=== PATIENT | male | born 1955 | race Caucasian/White ===

== ENCOUNTER 2019-11-16 10:54 | Outpatient (NON) | payer MEDICARE, SELFPAY ==
[2019-11-16 21:25] LABS: SARS-CoV-2 RNA PCR Negative
== END 2019-11-16 10:55 ==
PROVIDERS: Visit Provider Nurse Practitioner Adult Health
DX: R05 Cough (principal); Z20.828 Contact with and (suspected) exposure to other viral communicable diseases
CPT/HCPCS: 87635; C9803; U0003

== ENCOUNTER 2022-12-15 22:52 | Emergency (ER) | payer MEDICARE, SELFPAY ==
--- NOTE | ~2022-12-15 | CT_ITS ---
CT of the Abdomen and Pelvis: Indication: GI bleed Technique: 2.5 mm axial scans were obtained through the abdomen and pelvis following intravenous adm inistration of 100 cc of Omnipaque 350. Dose reduction technique was used on this scan by utilizing a utomated exposure control and iterative reconstruction technique. The dose-length product (DLP) was 7 20.68 mGy-cm. Findings: Scans through the lung bases are unremarkable. The liver, spleen, pancreas, adrenals and kidneys are within normal limits. Small gallstone present. There are atherosclerotic calcifications of the aorta. No lymphadenopathy. No bowel obstruction or bowel wall thickening. There is hyperdense material pooling within the lumen of the ascending colon, suspicious for active GI bleeding.. Images through the pelvis were performed. Urinary bladder unremarkable. No pelvic mass evident. No as cites. Impression: Findings consistent with active GI bleed at the ascending colon/hepatic flexure. Reviewed, dictated and finalized at [facility]. Impression: Findings consistent with active GI bleed at the ascending colon/hepatic flexure .
[2022-12-15 22:50] VITALS: BP 159/80; PULSE 75; RESP 18; O2SAT 100
[2022-12-15 23:01] VITALS: BP 159/80; PULSE 77; RESP 12; O2SAT 99
--- NOTE | 2022-12-15 23:57 | PC.NURSE ---
EDP DR. RODRIGUEZ VORTyrese CT W CON OF ABD PELVIS FOR PT. THIS RN USED CLOSED LOOP COMMUNICATION, CLARIFYING ORDER AND PT BEFORE HAVING FILM INSPECTORKARI ORDER.
[2022-12-16] VITALS (25 sets, daily range): BP systolic 105–174; BP diastolic 57–99; PULSE 61–98; RESP 14–21; O2SAT 94–99
[2022-12-16 00:02] LABS: Basophils Percent Auto 0.5 % (0.2-1.2); Eosinophils Percent Auto 0.5 % (0-4.4); Hematocrit 42.3 % (42.0-52.0); Hemoglobin 13.8 g/dL (14.0-18.0); Immature Granulocyte Absolute 0.01 K/mm3 (0.00-0.031); Immature Granulocyte Percent A 0.2 % (0-0.5); Lymphocytes Absolute Auto 2.15 K/mm3 (0.9-3.2); Lymphocytes Percent Auto 35.5 % (18.3-44.2); Mean Corpuscular HGB Conc 32.6 g/dl (32-36); Mean Corpuscular Hemoglobin 31.2 pg (26-34); Mean Corpuscular Volume 95.7 fl (80-100); Mean Platelet Volume 9.6 fl (7.4-10.4); Monocytes Absolute Auto 0.6 K/mm3 (0.1-0.6); Monocytes Percent Auto 9.4 % (2.6-8.5); Neutrophils Absolute Auto 3.3 K/mm3 (1.3-6.7); Neutrophils Percent Auto 53.9 % (45.5-73.1); Platelet Count Result 244 k/mm3 (150-375); Red Blood Count 4.42 M/mm3 (4.6-6.20); Red Cell Distribution Width 12.1 % (11.5-14.5); White Blood Count 6.1 K/mm3 (4.5-10.0)
[2022-12-16 00:12] LABS: Partial Thromboplastin Time 29.4 SECONDS (22.3-36.8)
[2022-12-16 00:14] LABS: Alanine Aminotransferase 27 U/L (6-50); Albumin Level 4.2 g/dL (3.5-5.1); Alkaline Phosphatase 64 U/L (38-126); Anion Gap 6 mmol/L (8-16); Aspartate Amino Transferase 29 U/L (17-59); Bilirubin,Total 0.8 mg/dL (0.2-1.3); Blood Urea Nitrogen 28 mg/dL (9-20); Calcium 8.8 mg/dL (8.4-10.2); Carbon Dioxide 27 mmol/L (22-30); Chloride 103 mmol/L (98-107); Estimated CRCL calculation 44 ml/min; Estimated Glomerular Filt Rate 47; Glucose 124 mg/dL (65-110); Potassium 3.5 mmol/L (3.4-5.0); Sodium 136 mmol/L (137-145)
--- NOTE | 2022-12-16 00:36 | PC.NURSE ---
PT TO CT AT THIS TIME.
--- NOTE | 2022-12-16 01:13 | ED.GIBLEED ---
HPI - GI Bleed General Chief complaint: GI Bleed Stated complaint: BLOODY STOOLS X 2 Time Seen by Provider: 12/15/22 23:49 History of Present Illness HPI Narrative: Patient presents to the emergency department with bright red blood per rectum x2 prior to arrival. He denies abdominal pain. Denies having had symptoms like this in the past. Patient is in no distress upon my initial evaluation of him Related Data Allergies Allergy/AdvReac Type Severity Reaction Status Date / Time codeine AdvReac Unknown NAUSEA Verified 12/15/22 23:07 oxycodone AdvReac Unknown CONFUSION Verified 12/15/22 23:07 NKDA Allergy Unknown Unknown Uncoded 12/15/22 23:07 Review of Systems Review of Systems: Review of systems negative except what is documented in the HPI Exam Narrative: GENERAL: Well-appearing, well-nourished, and in no acute distress. HEAD: Normocephalic, atraumatic. EYES: PERRLA and EOMI. ENT: Nares clear, no rhinorrhea or epistaxis. Mucous membranes moist. NECK: Supple. CHEST: Clear to auscultation. No respiratory distress. HEART: Regular rate and rhythm. ABDOMEN: Soft, nontender, nondistended. EXTREMITIES: Normal range of motion. No edema. SKIN: Warm, dry, no rash. NEURO: No focal deficits. Alert and oriented x3. PSYCH: Normal mood and affect. Course Course Emergency Course: Differential diagnosis includes but not limited to colitis, diverticulitis, hemorrhoids, active hemorrhage Telemetry ordered due to GI bleed and syncope to evaluate for dysrhythmias. Evaluated by myself. Rhythm ns Rate 69 Patient had 4 episodes of bright red blood while sitting on the toilet for the fourth time in the emergency department. After the fourth loss of blood he became very lightheaded and diaphoretic. Had a syncopal episode. He has been pale and slightly diaphoretic since. Vital signs are stable. Repeat CBC at that time was normal. However likely delayed response so we will repeat another hemoglobin. CT scan shows extensive intramural hemorrhage within the ascending colon extending to the hepatic flexure concerning for active GI bleed. Patient will need to be transferred somewhere with an interventional radiologist Due to high probability of clinically significant lift threatening deterioration, the patient required my highest level of preparedness to intervene emergently. Critical care time documented not including procedures needed Vital Signs Vital signs: Vital Signs Pulse Rate 75 12/15/22 22:50 Respiratory Rate 18 12/15/22 22:50 Blood Pressure 159/80 H 12/15/22 22:50 Pulse Oximetry 100 12/15/22 22:50 Pulse Rate 80 12/16/22 06:21 Respiratory Rate 19 12/16/22 06:21 Blood Pressure 134/63 12/16/22 06:21 Pulse Oximetry 96 12/16/22 06:21 MDM - GI Bleed MDM Narrative Medical decision making narrative: Pt accepted as transfer to [facility] for GI and interventional radiology. VSS, no further bleeding. Hgb trending down. Dr Montoya accepted transfer Lab Data 12/16/22 06:01 12/15/22 23:53 Labs: Lab Results 12/15/22 12/16/22 12/16/22 Range/Units 23:53 01:19 06:01 WBC 6.1 8.1 9.6 (4.5-10.0) K/mm3 RBC 4.42 L 4.15 L 3.67 L (4.6-6.20) M/mm3 Hgb 13.8 L 13.0 L 11.6 L (14.0-18.0) g/dL Hct 42.3 39.6 L 34.9 L (42.0-52.0) % MCV 95.7 95.4 95.1 (80-100) fl MCH 31.2 31.3 31.6 (26-34) pg MCHC 32.6 32.8 33.2 (32-36) g/dl RDW 12.1 12.1 12.0 (11.5-14.5) % Plt Count 244 270 218 (150-375) k/mm3 MPV 9.6 9.5 9.5 (7.4-10.4) fl Immature Gran % (Auto) 0.2 0.7 H 0.5 (0-0.5) % Neut % (Auto) 53.9 59.0 79.7 H (45.5-73.1) % Lymph % (Auto) 35.5 29.7 14.3 L (18.3-44.2) % Porter % (Auto) 9.4 H 9.7 H 5.2 (2.6-8.5) % Eos % (Auto) 0.5 0.2 0.0 (0-4.4) % Baso % (Auto) 0.5 0.7 0.3 (0.2-1.2) % Lymph # (Auto) 2.15 2.41 1.37 (0.9-3.2) K/mm3 Porter # (Auto) 0.6 0.8 H 0.5 (0.1-0.6) K/mm3 Eos # (Auto) 0.0 0.0 0
--- NOTE | 2022-12-16 01:17 | PC.NURSE ---
Pt ambulated to restroom. After passing bloody stool pt tried walking back to room and became diaphoretic, pale, and passed out. This RN was present. MICHELE Ruby tech grabbed wheelchair. MYRNA Del Castillo, carline RN and MYRNA Lakhani assisted pt into room closest to restroom. Pt regained consciousness as moving onto stretcher. EDP, Dr. Flores was at bedside and placed more lab and medication orders. Pt placed on monitor and has stable VS.
[2022-12-16 01:27] LABS: Basophils Absolute Auto 0.1 K/mm3 (0.0-0.1); Basophils Percent Auto 0.7 % (0.2-1.2); Eosinophils Percent Auto 0.2 % (0-4.4); Hematocrit 39.6 % (42.0-52.0); Immature Granulocyte Absolute 0.06 K/mm3 (0.00-0.031); Immature Granulocyte Percent A 0.7 % (0-0.5); Lymphocytes Absolute Auto 2.41 K/mm3 (0.9-3.2); Lymphocytes Percent Auto 29.7 % (18.3-44.2); Mean Corpuscular HGB Conc 32.8 g/dl (32-36); Mean Corpuscular Hemoglobin 31.3 pg (26-34); Mean Corpuscular Volume 95.4 fl (80-100); Mean Platelet Volume 9.5 fl (7.4-10.4); Monocytes Absolute Auto 0.8 K/mm3 (0.1-0.6); Monocytes Percent Auto 9.7 % (2.6-8.5); Neutrophils Absolute Auto 4.8 K/mm3 (1.3-6.7); Platelet Count Result 270 k/mm3 (150-375); Red Blood Count 4.15 M/mm3 (4.6-6.20); Red Cell Distribution Width 12.1 % (11.5-14.5); White Blood Count 8.1 K/mm3 (4.5-10.0)
[2022-12-16] MEDS: SODIUM CHLORIDE 0.9% IV 1,000 ML 999 ML IV CONT (01:28)
[2022-12-16] MEDS: PANTOPRAZOLE SODIUM IV 40 MG VIAL IV PUSH (01:29)
[2022-12-16] MEDS: PANTOPRAZOLE SODIUM IV 80 MG in SODIUM CHLORIDE 0.9% IV 500 ML 50 MG IV CONT (01:57)
[2022-12-16 06:06] LABS: Basophils Percent Auto 0.3 % (0.2-1.2); Hematocrit 34.9 % (42.0-52.0); Hemoglobin 11.6 g/dL (14.0-18.0); Immature Granulocyte Absolute 0.05 K/mm3 (0.00-0.031); Immature Granulocyte Percent A 0.5 % (0-0.5); Lymphocytes Absolute Auto 1.37 K/mm3 (0.9-3.2); Lymphocytes Percent Auto 14.3 % (18.3-44.2); Mean Corpuscular HGB Conc 33.2 g/dl (32-36); Mean Corpuscular Hemoglobin 31.6 pg (26-34); Mean Corpuscular Volume 95.1 fl (80-100); Mean Platelet Volume 9.5 fl (7.4-10.4); Monocytes Absolute Auto 0.5 K/mm3 (0.1-0.6); Monocytes Percent Auto 5.2 % (2.6-8.5); Neutrophils Absolute Auto 7.6 K/mm3 (1.3-6.7); Neutrophils Percent Auto 79.7 % (45.5-73.1); Platelet Count Result 218 k/mm3 (150-375); Red Blood Count 3.67 M/mm3 (4.6-6.20); White Blood Count 9.6 K/mm3 (4.5-10.0)
--- NOTE | 2022-12-16 06:10 | PC.NURSE ---
This RN spoke with Taylor at [facility]. Pt has been accepted to [facility]. Taylor will call back w updates.
[2022-12-16] MEDS: PIPERACILLIN/TAZ 4.5G/NS 100ML 4.5 GM/100 ML BAG IVPB (06:21)
== END 2022-12-16 08:50 | disposition short-term general hospital (02) ==
PROVIDERS: Emergency Provider Emergency Medicine; PCP Nurse Practitioner Family
DX: K92.2 Gastrointestinal hemorrhage, unspecified (principal); K52.9 Noninfective gastroenteritis and colitis, unspecified
CPT/HCPCS: 36415; 74177; 80053; 85025; 85610; 85730; 86850; 86900; 86901; 96365; 96366; 96368; 99285; C9113; J2543; J7030; J7040; Q9967

== ENCOUNTER 2024-11-04 18:34 | Emergency (ER) | payer MEDICARE, SELFPAY ==
--- OUTSIDE RECORDS SUMMARY | 2003-07-25 09:15 | XMS_ITS | Continuity of Care Document ---
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 [address] , [address], [place], [address], [place]. tel:[phone] Family History Family Member Type Diagnosis Age At Onset No Information Payers Payer name Insurance type Covered alliance party ID Authoriza tion(s) No Information Social History Type Description Quantity Date Captured Comments Sex Male Smoking Status No Information Chief Complaint And Reason For Visit No Information Reason For Referral Reason For Referral No Information History Of Present Illness Encounter Date Complaint History Of Prese nt Illness No Information Functional Status Date Functional Assessmen t No Information Instructions Date Instruction Additional Infor mation No Information Assessments Type Assessment Date No Information Patient Care Teams Name Effective Dates (start - stop) Status Members No Information
[2024-11-04] VITALS (7 sets, daily range): BP systolic 138–163; BP diastolic 65–119; PULSE 66–92; RESP 14–26; TEMP 36.6; O2SAT 96–99
--- NOTE | ~2024-11-04 | CT_ITS ---
EXAMINATION: CTA abdomen pelvis DATE: 11/04/2024 20:03 INDICATION: Gastrointestinal bleed TECHNIQUE: Computed tomographic angiography (CTA) of the abdomen and pelvis was performed with 100 mL Omnipaque-350 intravenous contrast. Additional 3D reconstructions utilizing rotating maximum intensity projection (MIP) were performed. Automated exposure control and iterative reconstruction technique were employed. The dose-length product was 560.93 mGy-cm. COMPARISON: 12/16/22 FINDINGS: Lung bases are clear. Mild cardiomegaly. No pericardial or pleural effusion. Tiny calcite gallstones the dependent aspect of the decompressed gallbladder. Liver, spleen, pancreas, bilateral adrenal glands and left kidney are normal. Decreased size and increased density of a previously 2.7 cm simple fluid attenuation, currently 1.7 cm higher attenuation likely complex proteinaceous hemorrhagic cyst at the right kidney. Bladder is normal. There is moderate colonic diverticulosis with a sigmoid predominance. There is no adjacent inflammatory change to suggest diverticulitis. Small bowel and appendix are normal. Fluid throughout the colon consistent with diarrhea. This demonstrates increased density diffusely which could be related to reported gastrointestinal bleed. There is a focus of active contrast extravasation in the ascending colon short distance proximal to the hepatic flexure. No free intraperitoneal gas or fluid. No pathologically enlarged abdominal or pelvic lymphadenopathy. There is mild scattered calcified atherosclerosis of the normal caliber abdominal aorta and many of the other arteries. Mild lumbar and moderate lower thoracic spondylosis. Right total hip arthroplasty. IMPRESSION: 1. Gastrointestinal bleed with active contrast extravasation along the ascending colon. 2. Cholelithiasis. 3. Diverticulosis. 4. 1.7 cm soft tissue density lesion in the right kidney at the site of a prior 2.7 cm low-attenuation cyst which suggests transition to a now hemorrhagic/proteinaceous cyst. Could consider correlation with ultrasound or noncontrast CT for confirmation as clinically indicated. Reviewed, dictated and finalized at location A. IMPRESSION: 1. Gastrointestinal bleed with active contrast extravasation along the ascendin g colon. 2. Cholelithiasis. 3. Diverticulosis. 4. 1.7 cm soft tissue density lesion in the right kidney at the site of a prior 2.7 cm low-attenuation cyst which suggests transition to a now hemorrhagic/pro teinaceous cyst. Could consider correlation with ultrasound or noncontrast CT f or confirmation as clinically indicated.
--- OUTSIDE RECORDS SUMMARY | 2024-11-04 18:36 | XMS_ITS | Clinical Summary ---
Author Organization [facility] Address [address] [facility] [place] [address] Care Team Providers Care Block Trimmer Name Role Phone Unavailable Primary Care Provider Unavailabl e Source Comments [facility],non-owned Affiliates and Associated Physician Practices is amultiple site organization consisting of ambulatory clinics and hospital sitesin [place], [place], [place] and [place]. This disclosure is being madepursuant to the Care Everywhere program and may not contain all information available regarding this patient. Last updated 17.[facility] Allergies Active Allergy Reactions Criticality Noted Date Comments Barbiturates Other 10/13/2018 hallucinations Codeine Rash Medium 09/27/2018 Medications * Be aware that medications may not be up to date on this document. Alwaysverify current medications with the patient. aspirin (ASPIRIN) 81 MG chew tablet Take 1 tablet by mouth once daily 09/29/2018 Active lisinopril (PRINIVIL; ZESTRIL) 10 MG tablet Take 1 tablet by mouth once daily 90 tablet 3 10/27/2018 Active carvedilol (COREG) 12.5 MG tablet Take 0.5 (one-half) tablet by mouth 2 times daily 180 tablet 3 06/14/2019 Active spironolactone (ALDACTONE) 25 MG tabletIndication s:Essential hypertension,RAH M (nonischemic cardiomyopathy) (HCC) Take 1 tablet by mouth once daily 90 tablet 3 01/25/2020 Active Active Problems Problem Noted Date Diagnosed Date Seasonal allergies 06/14/2019 Chronic systolic heart failure 10/05/2018 Overview (10/05/2018): TTE showed 30% EF Assessment & Plan (06/15/2019 2:36 PM CDT): EF increased from 30% to 45% on most recent echo. Continue lisinopril 10 mg and spironolactone 25 mg. Decrease Coreg to 6.25 mg BID due to fatigue. No indication for primary prevention ICD at this time due to improved EF. Patient instructed to continue to abstain from alcohol. Low-sodium, low-fat diet recommended. Continue exercise activity as tolerated. Call with an update in 1-2 weeks regarding energy level. Would consider increasing lisinopril if blood pressure permits. Follow-up with cardiology in 4 months. Assessment & Plan (10/05/2018 11:44 AM CDT): EF 30%, euvolemic. Start Coreg 3.125 mg BID and continue lisinopril 10 mg, ASA 81 mg, and Plavix 75 mg. Schedule nuclear stress test for ischemic work-up and recheck BMP. Low-salt, low-fat diet. Continue exercise activity. Continue abstaining from alcohol. Follow-up with cardiology in 3 weeks. Plan for ICD if EF does not improve with medical management. NICM (nonischemic cardiomyopathy) 10/05/2018 Assessment & Plan (06/15/2019 2:36 PM CDT): Stress test negative for ischemia. Cardiomyopathy likely 2/2 alcohol use. Continue to abstain from alcohol. Essential hypertension 10/05/2018 Assessment & Plan (06/15/2019 2:28 PM CDT): Good control with home BP 127/69. Assessment & Plan (10/05/2018 11:49 AM CDT): Start Coreg 3.125 mg BID. Continue lisinopril 10 mg daily. Follow-up in 3 weeks. Aphasia 09/27/2018 Neurological abnormality 09/27/2018 Cerebrovascular accident (CVA) 09/27/2018 Assessment & Plan (06/15/2019 2:29 PM CDT): Patient denies recurrence of stroke symptoms. He is able to perform ADLs and exercise activity without limitations. Resolved Problems Problem Noted Date Diagnosed Date Resolved Date Gastrointestinal hemorrhage, unspecified gastrointestinal hemorrhage type 12/16/2022 023 Immunizations Immunization Administration Dates Next Due INFLUENZA VACCINE 03/11/2019 Family History Medical History Relation Name Comments Cancer - Lung Mother Relation Name Status Comments Mother Social History Tobacco Use Types Packs/Day Years Used Date Smoking Tobacco: Former Cigarettes 1 50 Smokeless Tobacco: Never Tobacco Cessation:Counseling Given: Not Answered Alcohol Use Standard Drinks/Week Comments Yes 20 (1 standard drink = 0.6 oz pu re alcohol) Overall Financial Resource Strain (CARDIA) Answe r Date Recorded How hard is it for you to pa y for the very basics like food, housing, medical care, and heating? Not hard at all 12/16/2022 [facility] [place] - Occupational Stress Questionnaire Answer Date Recorded Do you feel stress - tense, restless, nervous, or anxious, or unable to sleep at night because your mind is troubled all the time - these days? Not at all 12/16/2022 Hunger Vital Sign Answer Date Recorded Within the past 12 months, y ou worried that your food would run out before you got the money to buy more. Never true 12/17/19 23 Within the past 12 months, t he food you bought just didn't last and you didn't have money to get more. Never true 12/16/2022 PRAPARE - Transportation Answer Date Re corded In the past 12 months, has l ack of transportation kept you from medical appointments or from getting medications? No 12/06 In the past 12 months, has l ack of transportation kept you from meetings, work, or from getting things needed for daily living? No 12/16/2022 Housing Stability Vital Sign Answer Fransisco e Recorded In the last 12 months, was t here a time when you were not able to pay the mortgage or rent on time? No 12/16/2022 In the last 12 months, how many places have you lived? 1 12/16/2022 In the last 12 months, was t here a time when you did not have a steady place to sleep or slept in a intermediate (including now)? No 12/16/2022 Sex and Gender Information Value Date Recorded Sex Assigned at Not on file Legal Sex Male 1:42 PM CDT Gender Identity Not on file Sexual Orientation Not on file Last Filed Vital Signs Vital Sign Reading Time Taken Comments Blood Pressure 143/72 12/17/2022 8:40 AM CDT Pulse 76 12/17/2022 8:40 AM CDT Temperature 36.4 C (97.5 F) 12/17/2022 8:40 AM CDT Respiratory Rate 11 12/17/2022 8:40 AM CDT Oxygen Saturation 98% 12/17/2022 8:40 AM CDT Inhaled Oxygen Concentration - - Weight 88.5 kg (195 lb 1.6 oz) 12/17/2022 5:30 A M CDT Height 167.6 cm (5' 6) 12/16/2022 10:09 AM CDT Body Mass Index 31.49 12/16/2022 10:09 AM CDT Plan of Treatment Health Maintenance Due Date Last Done Comments COLOGUARD (AGES 45-75) - COLON CA SCREENING 1955 CT COLONOGRAPHY - COLON CA SCREENING 1955 FIT - COLON CA SCREENING 1955 FLEX SIG - COLON CA SCREENING 1955 HEPATITIS C SCREENING 03/27/1972 DTAP/TDAP/TD VACCINES (1 - Tdap) 1973 PNEUMOCOCCAL VACCINE 50+ (1 of 2 - PCV) 1973 ZOSTER VACCINE (1 of 2) 2004 Respiratory Syncytial Virus (RSV) Vaccine Pt: or over 60 yrs (1 - Risk 60-74 years 1-dose series) 2014 AAA SCREENING 2019 LIPID TESTING 09/29/2023 09/28/2018 COVID-19 VACCINE (1 - 2023- season) 2023 DEPRESSION SCREENING 03/08/2024 MEDICARE AWV CALENDAR YEAR 2024 INFLUENZA VACCINE (#1) 2024 0, 03/09/2019, 01/02/2016, Additional history exists SCREENING FOR DIABETES 12/16/2025 3, 09/28/2018, 09/28/2018, Additional history exists COLON MONITORING 12/17/2032 12/17/2022, 12/17/2022 COLONOSCOPY - COLON CA SCREENING 12/17/2032 12/17/2022, 12/17/2022 Colorectal Cancer Screening 12/17/2032 HEPATITIS B VACCINE Aged Out No longe r eligible based on patient's age to complete this topic HIB VACCINE Aged Out No longer eligi ble based on patient's age to complete this topic HPV VACCINE Aged Out No longer eligi ble based on patient's age to complete this topic MENINGOCOCCAL (Group B) VACCINE SHARED DECISION-MAKING Aged Out No longer eligible based on patient's age to complete this topic MENINGOCOCCAL GROUPS A/C/Y/W VACCINE Aged Out No longer eligible based on patient's age to complete this topic Procedures Procedure Name Priority Date/Time Associated Diagnosis Comments ENDOSCOPY, COLON, DIAGNOSTIC Routine 12/17/2022 7:49 AM CDT COMPREHENSIVE METABOLIC PANEL STAT 12/16/2022 10:29 AM CDT LIPID PROFILE Routine 09/28/2018 3:36 AM CDT from Last 3 Months or Most Recently Relevant to Health Maintenance Results * ENDOSCOPY, COLON, DIAGNOSTIC (12/17/2022 7:49 AM CDT) Report Endoscopy POC _ Patient Name: Torsten Freire Procedure Date: 12/17/2022 7:49 AM Date of : 1955 Admit Type: Inpatient Age: 67 Gender: Male Ethnicity: Not or Race: White Attending MD: Kit Bains MD, [id number] _ Procedure: Colonoscopy Indications: Hematochezia Providers: Kit Bains MD (Doctor), Jovita Ojeda, RN, Ale Coronel RN Patient Profile: 67M presents for eval of rectal bleeding. last exam > 3 yrs Referring MD: Carol Flores MD (Referring MD) Medicines: Monitored Anesthesia Care Complications: No immediate complications. _ Estimated Blood Loss: Estimated blood loss: none. Procedure: Pre-Anesthesia Assessment: - Prior to the procedure, a History and Physical was performed, and patient medications and allergies were reviewed. The patient's tolerance of previous anesthesia was also reviewed. The risks and benefits of the procedure and the sedation options and risks were discussed with the patient. All questions were answered, and informed consent was obtained. Prior Anticoagulants: The patient has taken no anticoagulant or antiplatelet agents. ASA Grade Assessment: II - A patient with mild systemic disease. After reviewing the risks and benefits, the patient was deemed in satisfactory condition to undergo the procedure. After I obtained informed consent, the scope was passed under direct vision. Throughout the procedure, the patient's blood pressure, pulse, and oxygen saturations were monitored continuously. The Colonoscope was introduced through the anus and advanced to the cecum, identified by appendiceal orifice and ileocecal valve. The colonoscopy was performed without difficulty. The patient tolerated the procedure well. The quality of the bowel preparation was fair. The terminal ileum, ileocecal valve, appendiceal orifice, and rectum were photographed. Impression: - Preparation of the colon was fair. - The examined portion of the ileum was normal. - Diverticulosis in the sigmoid colon, in the descending colon, in the transverse colon and in the ascending colon. - The examination was otherwise normal. - No specimens collected. Findings: The perianal and digital rectal examinations were normal. The terminal ileum appeared normal. Scattered small and large-mouthed diverticula were found in the sigmoid colon, descending colon, transverse colon and ascending colon. The exam was otherwise without abnormality. _ Recommendation: - Patient has a contact number available for emergencies. The signs and symptoms of potential delayed complications were discussed with the patient. Return to normal activities tomorrow. Written discharge instructions were provided to the patient. - High fiber diet. - Repeat colonoscopy in 3 - 5 years for surveillance. - Return patient to [facility] for ongoing care. Procedure Code(s): --- Professional --- 07197, Colonoscopy, flexible; diagnostic, including collection of specimen(s) by brushing or washing, when performed (separate procedure) --- Technical --- 35135, Colonoscopy, flexible; diagnostic, including collection of specimen(s) by brushing or washing, when performed (separate procedure) Diagnosis Code(s): --- Professional --- K92.1, Melena (includes Hematochezia) K57.30, Diverticulosis of large intestine without perforation or abscess without bleeding --- Technical --- K92.1, Melena (includes Hematochezia) K57.30, Diverticulosis of large intestine without perforation or abscess without bleeding CPT copyright 2020 [employer]. All rights reserved. The codes documented in this report are preliminary and upon senior mortgage underwriter review may be revised to meet current compliance requirements. Kit Bains MD 12/17/2022 8:28:36 AM This report has been signed electronically. Number of Addenda: 0 Note Initiated On: 12/17/2022 7:49 AM [facility] 12/17/2022 7:49 AM CDT Narrative Procedure Note Kit Bains MD - 12/17/2022 8:29 AM CDT Colonoscopy Scattered pandiverticulosis Normal T.I. Diverticular bleed stopped Resume diet DC us Kit Bains MD GI PROCEDURE ORDERABLES Edited R esult - Final [facility] * (ABNORMAL) COMPREHENSIVE METABOLIC PANEL (12/16/2022 10:29 AM CDT) Glucose 124(H) 70 - 105 mg/dL 12/16/2022 10:54 AM CDT [facility] Sodium 139 136 - 145 mmol/L 12/16/2022 10:54 AM CDT [facility] Potassium 4.3 3.5 - 5.1 mmol/L 12/16/2022 10:54 AM CDT [facility] Chloride 112(H) 98 - 107 mmol/L 12/16/2022 10:54 AM CDT [facility] CO2 22 22 - 29 mmol/L 12/16/2022 10:54 AM CDT [facility] Calcium 8.4 8.4 - 10.4 mg/dL 12/16/2022 10:54 AM CDT [facility] Anion Gap 5(L) 6 - 16 mmol/L 12/16/2022 10:54 AM CDT [facility] BUN 19 7 - 26 mg/dL 12/16/2022 10:54 AM CDT [facility] Creatinine 1.14 0.72 - 1.25 mg/dL 12/16/2022 10:54 AM CDT [facility] Alkaline Phosphatase 48 40 - 150 U/L 12/16/2022 10:54 AM CDT [facility] ALT 16 0 - 55 U/L 12/16/2022 10:54 AM CDT [facility] AST 15 5 - 34 U/L 12/16/2022 10:54 AM CDT [facility] Protein Total 5.8(L) 6.4 - 8.3 gm/dL 12/16/2022 10:54 AM CDT [facility] Albumin 3.3(L) 3.4 - 5.0 gm/dL 12/16/2022 10:54 AM CDT [facility] Bilirubin Total 0.6 0.2 - 1.2 mg/dL 12/16/2022 10:54 AM CDT [facility] eGFR by CKD-EPI 70(L) >=90 mL/min/1.7 3 m2 12/16/2022 10:54 AM CDT [facility] Blood BLOOD SPECIMEN / Unknown Lab Venipuncture / Unknown 12/16/2022 10:29 AM CDT 12/16/2022 10:34 AM CDT Chucky Russo MD LAB - CHEMISTRY ORDERABLES Fin al Result Performing Organization Address City/[facility]/ZIP Co de Phone Number [facility] [address] [place] [address] * (ABNORMAL) LIPID PROFILE (09/28/2018 3:36 AM CDT) [facility] Cholesterol Total 211(H) <200 mg/dL 09/28/2018 4:19 AM [facility] HDL 41 >40 mg/dL 09/28/2018 4:19 AM [facility] Comment: ATP III Classification of HDL Cholesterol: <40 mg/dL: Considered a major risk factor. >60 mg/dL: Considered a negative risk factor. LDL Calculated 145(H) <100 mg/dL 09/28/2018 4:19 AM [facility] Comment: ATP III Classification of LDL Cholesterol: <100 mg/dL: Optimal 100 - 129 mg/dL: Near Optimal/Above Optimal 130 - 159 mg/dL: Borderline High 160 - 189 mg/dL: High >190 mg/dL: Very High Triglycerides 125 <150 mg/dL 09/28/2018 4:19 AM [facility] Comment: ATP III Classification of Triglycerides: <150 mg/dL: Normal 150 - 199 mg/dL: Borderline High 200 - 400 mg/dL: High >500 mg/dL: Very High Blood BLOOD SPECIMEN / Unknown Lab Venipuncture / Unknown 09/28/2018 3:36 AM CDT 09/28/2018 3:43 AM CDT Ginger Falcon MD LAB - CHEMISTRY ORDERABLES Final Result [facility] [address] [place] [address] from Last 3 Months or Most Recently Relevant to Health Maintenance [facility] Address: [address] [place] [address] MEDICARE [facility] MANAGED MEDICARE ADV [facility] AETNA AETNA AETNA AETNA AETNA AETNA Member Subscriber Plan / [facility] Name:Torsten Freire Relation to Subscriber:Self Name:TORSTEN FREIRE Payer ID:[id number] (NA) Group ID:[id number] Type:PPO Address: [id number] [place] [id number] AETNA Member Subscriber Plan / P[facility]Present) Name:Torsten Freire Relation to Subscriber:Self Name:TORSTEN FREIRE Payer ID:[id number] (NAIC) Group ID:[id number] Type:PPO Address: [id number] [place] [id number] AETNA AETNA AETNA AETNA AETNA AETNA MEDICARE [facility] MEDICARE [facility] MEDICARE [facility] MEDICARE [facility] MEDICARE [facility] MEDICARE [facility] MEDICARE [facility] MEDICARE Member Subscriber Plan / Payer (Ef fective 2019-Present) Name:Torsten Freire Member ID:[id number] Relation to Subscriber:Self Name:TORSTEN FREIRE Subscriber ID:[id number] Payer ID:Not on file Group ID:Not on file Type:Medicare Address: [place] [phone] [facility] MEDICARE [facility] MEDICARE [facility] MEDICARE [facility] MEDICARE [facility] MEDICARE [facility] MEDICARE [facility] MEDICARE [facility] MEDICARE [facility] MEDICARE [facility] MEDICARE [facility] MEDICARE [facility] Member Subscriber Plan / Payer ( fective 2019-) Name:Torsten Freire Relation to Subscriber:Self Name:TORSTEN FREIRE Payer ID:Not on file Group ID:[id number] Type:Commercial Address: [facility] [id number] [place] [phone] Advance Directives * Full Code (Latest Code Status on File) Date Activated Date Inactivated Comments 12/16/2022 1:31 PM 12/17/2022 1:14 PM * Full Code Date Activated Date Inactivated Comments 09/27/2018 9:50 PM 09/28/2018 5:36 PM
[2024-11-04 18:50] LABS: Hematocrit 43.4 % (42.0-52.0); Hemoglobin 14.7 g/dL (14.0-18.0); Immature Granulocyte Percent A 0.4 % (0-0.5); Lymphocytes Absolute Auto 2.77 K/mm3 (0.9-3.2); Mean Corpuscular HGB Conc 33.9 g/dl (32-36); Mean Corpuscular Hemoglobin 31.0 pg (26-34); Mean Corpuscular Volume 91.6 fl (80-100); Nucleated Red Blood Cells Absolute Auto 0.000 K/mm3 (0.0-0.012); Nucleated Red Blood Cells Perc 0.0 % (0.0-0.2); Platelet Count Result 232 k/mm3 (150-375); Red Blood Count 4.74 M/mm3 (4.6-6.20); White Blood Count 9.1 K/mm3 (4.5-10.0)
[2024-11-04 19:11] LABS: INR 1.0; Partial Thromboplastin Time 26.1 Seconds (22.3-36.8); Prothrombin Time 13.2 Seconds (11.1-14.7)
[2024-11-04 19:13] LABS: Alanine Aminotransferase 28 U/L (6-50); Albumin Level 4.3 g/dL (3.5-5.1); Alkaline Phosphatase 61 U/L (38-126); Anion Gap 9 mmol/L (4-12); Aspartate Amino Transferase 33 U/L (17-59); Bilirubin,Total 0.8 mg/dL (0.2-1.3); Blood Urea Nitrogen 20 mg/dL (9-20); Calcium 9.2 mg/dL (8.4-10.2); Carbon Dioxide 26 mmol/L (22-30); Chloride 104 mmol/L (98-107); Estimated Glomerular Filt Rate > 60; Glucose 126 mg/dL (65-110); Potassium 4.3 mmol/L (3.4-5.0); Sodium 139 mmol/L (137-145); Total Protein 7.1 g/dL (6.3-8.2)
--- NOTE | 2024-11-04 19:31 | ED_ITS ---
HPI - General Adult General Chief complaint: GI Bleed Stated complaint: rectal bleeding Time Seen by Provider: 11/04/24 19:25 History of Present Illness HPI narrative: Patient is a 69-year-old gentleman presents emergency department with chief complaint of rectal bleeding. Patient reports that he has had prior history of GI bleed in the past reports that today he had 8 episodes melanotic stool patient states that he is having no lightheadedness reports that he is just on aspirin reports no anticoagulant use or additional anti-platelet therapy patient reports no abdominal pain Related Data Home Medications ?Medication ?Instructions ?Recorded ?Confirmed ?Last Taken ?Type carvedilol 6.25 mg tablet mg PO 05/01/24 05/03/24 Unkn own History lisinopril 20 mg tablet mg PO 05/01/24 05/03/24 Unkn own History rosuvastatin 20 mg tablet mg PO 05/01/24 05/03/24 Unkn own History spironolactone 25 mg tablet mg PO 05/01/24 05/03/24 Un known History Allergies Allergy/AdvReac Type Severity Reaction Status Date / Time codeine AdvReac Unknown NAUSEA Verified 05/03/24 07:37 oxycodone AdvReac Unknown CONFUSION Verified 05/03/24 08:42 NKDA Allergy Unknown Unknown Uncoded 05/03/24 07:37 Review of Systems 2 Review of Systems: A 10 system review of systems was completed on the patient and is negative except for what is stated in the HPI. Nursing and ancillary documentation was reviewed. PMFSH Surgical History Surgical History History of knee surgery bilat. scopes done History of hip surgery History of shoulder surgery Family History Family History Father Cerebrovascular accident Social History Social History Smoking status: Never smoker Alcohol intake: never Substance use: never Current Housing: Decline to Answer Concerned About Future Housing: Decline to Answer Difficulty Paying Gas/Electric Bills: Decline to Answer Difficulty Paying for Meds: Decline to Answer Currently Unemployed: Decline to Answer Education: Decline to Answer Difficulty w/ Childcare or Family Care: Decline to Answer Exam 2 Narrative: GENERAL: Well-appearing, well-nourished, and in no acute distress. HEAD: Normocephalic, atraumatic. EYES: PERRLA and EOMI. ENT: Nares clear, no rhinorrhea or epistaxis. Mucous membranes moist. NECK: Supple. CHEST: Clear to auscultation. No respiratory distress. HEART: Regular rate and rhythm. No murmur heard. Normal peripheral pulses. ABDOMEN: Soft, nontender, nondistended, normal active bowel sounds. : Grossly positive stool EXTREMITIES: Normal range of motion. No edema. SKIN: Warm, dry, no rash. NEURO: No focal deficits. Alert and oriented x3. PSYCH: Normal mood and affect. Course Vital Signs Vital signs: Vital Signs Temperature 36.6 C 11/04/24 18:39 Pulse Rate 83 11/04/24 18:39 Respiratory Rate 26 H 11/04/24 18:39 Blood Pressure 163/119 H 11/04/24 18:39 Pulse Oximetry 99 11/04/24 18:39 Oxygen Delivery Room Air 11/04/24 18:39 Temperature 36.6 C 11/04/24 18:39 Pulse Rate 66 11/04/24 20:52 Respiratory Rate 15 11/04/24 20:52 Blood Pressure 151/65 H 11/04/24 20:52 Pulse Oximetry 99 11/04/24 20:52 Oxygen Delivery Room Air 11/04/24 18:39 Medical Decision Making MDM Narrative Medical decision making narrative: Differential diagnosis includes GI bleed, anemia, Laboratory studies were obtained on the patient showed initial hemoglobin of 14.7 patient has had several large bloody bowel movements in the emergency department repeat hemoglobin is 11.1 Patient was given Protonix emergency department a L normal saline The patient is not on any anticoagulants CTA of the abdomen pelvis was ordered and showed active extravasation of contrast in the ascending colon near the junction with the hepatic flexure Given this the patient will be transferred to facility with interventional radiology capabilities Vital Signs Vital Signs: Vital Signs Temperature 36.6 C 11/04/24 18:39 Pulse Rate 83 11/04/24 18:39 Respiratory Rate 26 H 11/04/24 18:39 Blood Pressure 163/119 H 11/04/24 18:39 Pulse Oximetry 99 11/04/24 18:39 Oxygen Delivery Room Air 11/04/24 18:39 Temperature 36.6 C 11/04/24 18:39 Pulse Rate 66 08/30/25 20:52 Respiratory Rate 15 11/04/24 20:52 Blood Pressure 151/65 H 11/04/24 20:52 Pulse Oximetry 99 11/04/24 20:52 Oxygen Delivery Room Air 11/04/24 18:39 Lab Data 11/04/24 21:18 11/04/24 18:44 Labs: Lab Results 11/04/24 11/04/24 Range/Units 18:44 21:18 WBC 9.1 (4.5-10.0) K/mm3 RBC 4.74 (4.6-6.20) M/mm3 Hgb 14.7 D 11.1 L D (14.0-18.0) g/dL Hct 43.4 32.6 L (42.0-52.0) % MCV 91.6 (80-100) fl MCH 31.0 (26-34) pg MCHC 33.9 (32-36) g/dl RDW 13.2 (11.5-14.5) % Plt Count 232 (150-375) k/mm3 MPV 9.2 (7.4-10.4) fl Immature Gran % (Auto) 0.4 (0-0.5) % Neut % (Auto) 60.1 (45.5-73.1) % Lymph % (Auto) 30.3 (18.3-44.2) % Storey % (Auto) 8.3 (2.6-8.5) % Eos % (Auto) 0.1 (0-4.4) % Baso % (Auto) 0.8 (0.2-1.2) % Lymph # (Auto) 2.77 (0.9-3.2) K/mm3 Storey # (Auto) 0.8 H (0.1-0.6) K/mm3 Eos # (Auto) 0.0 (0-0.3) K/mm3 Baso # (Auto) 0.1 (0.0-0.1) K/mm3 Abs Immat Gran (auto) 0.04 H (0.00-0.031) K/mm3 Absolute Neuts (auto) 5.5 (1.3-6.7) K/mm3 Absolute Nucleated RBC 0.000 (0.0-0.012) K/mm3 Nucleated RBC % 0.0 (0.0-0.2) % PT 13.2 (11.1-14.7) Seconds INR 1.0 APTT 26.1 (22.3-36.8) Seconds Sodium 139 (137-145) mmol/L Potassium 4.3 (3.4-5.0) mmol/L Chloride 104 (98-107) mmol/L Carbon Dioxide 26 (22-30) mmol/L Anion Gap 9 (4-12) mmol/L BUN 20 (9-20) mg/dL Creatinine 1.11 (0.7-1.3) mg/dL Estim Creat Clear Calc Not Reportable Estimated GFR > 60 (59 - ) Glucose 126 H (65-110) mg/dL Calcium 9.2 (8.4-10.2) mg/dL Total Bilirubin 0.8 (0.2-1.3) mg/dL AST 33 (17-59) U/L ALT 28 (6-50) U/L Alkaline Phosphatase 61 (38-126) U/L Total Protein 7.1 (6.3-8.2) g/dL Albumin 4.3 (3.5-5.1) g/dL Blood Type O Positive Antibody Screen Negative Discharge Plan Discharge Clinical Impression: GI (gastrointestinal bleed) Patient Disposition: Acute Care Hospital Condition: Stable Patient Language: [place] Prescriptions: No Action lisinopril 20 mg tablet PO carvedilol 6.25 mg tablet PO rosuvastatin 20 mg tablet PO spironolactone 25 mg tablet PO Follow-up/Referrals: Linda,MD Kemar [Primary Care Provider, Unknown] Time of Disposition: 21:39
--- NOTE | 2024-11-04 19:57 | PC.NURSE ---
PT had large BM with gross blood EDMD aware. Pt currently in CT.
[2024-11-04] MEDS: SODIUM CHLORIDE 0.9% IV 1,000 ML 999 ML IV CONT (20:51)
--- NOTE | 2024-11-04 21:02 | PC.NURSE ---
Addendum entered by Harriet Chan RN 11/04/24 21:13: ERP was called to the bathroom for assessment. Original Note: RN was called to bathroom at 2040 for pt by family. Pt was found with head resting against wall. Diaphoretic. Responsive to verbal stimuli. Pt was assisted to bed with 3 RN assist. Placed in reverse Trendelenburg second iv placed and fluids ran per order.
--- NOTE | 2024-11-04 21:07 | PC.NURSE ---
Pt had another small bloody BM at this hour. RN and nona Vyas assisted pt to roll onto bed stewart. Pt tolerated well. Pt repositioned in bed. Family at bedside. Call light within reach.
[2024-11-04 21:22] LABS: Hematocrit 32.6 % (42.0-52.0); Hemoglobin 11.1 g/dL (14.0-18.0)
[2024-11-04] MEDS: PANTOPRAZOLE SODIUM IV 40 MG VIAL IV PUSH (21:49)
--- NOTE | 2024-11-04 22:03 | PC.NURSE ---
PT alert and talkative at this hour. No pain or discomfort noted.
[2024-11-04 23:44] LABS: Hematocrit 35.1 % (42.0-52.0); Hemoglobin 12.0 g/dL (14.0-18.0)
[2024-11-05] VITALS: BP 131/63; PULSE 73; RESP 21; O2SAT 97
== END 2024-11-05 01:29 | disposition short-term general hospital (02) ==
PROVIDERS: Emergency Medicine; Emergency Provider Emergency Medicine; PCP Internal Medicine
DX: K92.2 Gastrointestinal hemorrhage, unspecified (principal); Z79.82 Long term (current) use of aspirin
CPT/HCPCS: 36415; 74174; 80053; 85014; 85018; 85025; 85610; 85730; 86850; 86900; 86901; 96361; 96374; 99285; J2470; J7030; Q9967